=== PATIENT | female | born 1975 | race Caucasian/White ===

== ENCOUNTER 2019-07-09 08:08 | Emergency (ER) | payer OTHER ==
--- NOTE | 2019-07-09 08:28 | EDM.PDOC ---
ED HPI GENERAL MEDICAL PROBLEM - General Chief Complaint: Chest Pain Stated Complaint: CHEST PAIN Time Seen by Provider: 07/09/19 08:26 Source of Information: Reports: Patient History Limitations: Reports: No Limitations - History of Present Illness INITIAL COMMENTS - FREE TEXT/NARRATIVE: 44-year-old female presents to the ED for evaluation of central precordial left chest pain that awoke her from sleep at 0400 hrs. this morning. Angel sputum production. She denies very little problems with reflux esophagitis and particularly no worse as of recent bleed. Pain did not radiate through to her back. Appreciated is made of more short of breath. There is no pleuritic component to the pain. Was described as a dull ache pressure discomfort. She has a family history of coronary disease. She has problems currently with hypothyroidism and is currently on a mixture of thyroid replacement hormones primarily in the form of T3 supplementation. They're waiting to see if this will benefit her TSH versus adding free T4 as well. Sessile and positive iron binding capacity. Examination and vital signs are normal. No burping or belching to relieve the discomfort. In the present she states the pain is pretty well gone that she was expressing at 4:00 this morning. This suggests most likely GI source of chest pain. At present she does not need any active treatment. Onset: Today Onset Date: 07/09/19 Onset Time: 04:00 (From sleep with mild left precordial central chest pressure discomfort.) Duration: Improving ( Is now relieved itself.) Location: Reports: Chest (Left precordial mid chest). Denies: Radiates to (No radiation of the discomfort into her back neck or chest or left shoulder) Quality: Reports: Ache, Pressure Severity: Mild Improves with: Reports: Other Worsens with: Reports: None (Seem to improve over time.) Associated Symptoms: Reports: No Other Symptoms, Chest Pain, Headaches. Denies : Confusion, Cough, cough w sputum, Fever/Chills, Malaise, Rash, Seizure, Shortness of Breath, Syncope, Weakness Treatments SHOPPER: Reports: Other (see below) (None.) Chest Pain Score (Numeric/FACES): 5 - Related Data Allergies Allergy/AdvReac Type Severity Reaction Status Date / Time ciprofloxacin [From Cipro] Allergy Other Verified 07/09/19 08:25 Sulfa (Sulfonamide Allergy Other Verified 07/09/19 08:25 Antibiotics) Home Meds: Home Meds Naltrexone 3 mcg PO DAILY 07/09/19 [History] Progesterone, Micronized [Progesterone] 07/09/19 [History] T 3 32 mcg PO BID 07/09/19 [History] Past Medical History Cardiovascular History: Reports: Other (See Below) (Strong family history of coronary disease in her parents particularly.) Gastrointestinal History: Reports: GERD (Mild GERD.) Social & Family History - Tobacco Use Smoking Status *Q: Never Smoker ED ROS GENERAL - Review of Systems Review Of Systems: See Below Constitutional: Denies: No Symptoms, Fever, Chills, Malaise, Weakness, Fatigue, Diaphoresis, Decreased Appetite, Weight Loss HEENT: Denies: No Symptoms Respiratory: Reports: No Symptoms. Denies: Shortness of Breath, Wheezing, Pleuritic Chest Pain Cardiovascular: Reports: Chest Pain (Central precordial chest discomfort.), Palpitations (Aware of occasional palpitations.). Denies: No Symptoms, Blood Pressure Problem, Claudication, Dyspnea on Exertion, Edema, Lightheadedness, Orthopnea, PND, Syncope Endocrine: Reports: No Symptoms GI/Abdominal: Reports: Other (Some GERD. No relief with this chest discomfort with burping or belching.). Denies: Abdominal Pain, Anorexia, Bloody Stool, Diarrhea, Decreased Appetite, Difficulty Swallowing, Flatus, Hematemesis, Hematochezia : Reports: No Symptoms Musculoskeletal: Reports: Other (Generalized muscle skeletal pain syndrome labeled as fibromyalgia.) Skin: Reports: No Symptoms Neurological: Reports: No Symptoms. Denies: Seizure, Syncope, Tingling, Tremors , Difficulty Walking, Weakness Psychiatric: Reports: No Symptoms ED EXAM, GENERAL - Physical Exam Exam: See Below Exam Limited By: No Limitations General Appearance: Alert, WD/WN, No Apparent Distress, Other (Vital signs show temperature 37.0. Heart rate is 71 sinus respiratory is 18 with a pulse of 100% on room air. BP 08/31/80.) Eye Exam: Bilateral Eye: Normal Inspection, PERRL Ears: Normal TMs Neck: Normal Inspection, Non-Tender, Full Range of Motion. No: Carotid Bruit, Lymphadenopathy (L), Lymphadenopathy (R) Respiratory/Chest: No Respiratory Distress, Lungs Clear, Normal Breath Sounds, No Accessory Muscle Use, Chest Non-Tender, Other (Tenderness on palpation of the upper breasts she reports she has ) Cardiovascular: Normal Peripheral Pulses, Regular Rate, Rhythm, No Edema, No Gallop, No Murmur (diffuse fibrocystic disease and the upper breast.), No Rub Peripheral Pulses: 3+: Posterior Tibial (L), Posterior Tibial (R), Dorsalis Pedis (L), Dorsalis Pedis (R) GI/Abdominal: Normal Bowel Sounds, Soft, Non-Tender, No Organomegaly, No Distention, No Abnormal Bruit, No Mass, Pelvis Stable, Other (No previous abdominal surgeries.) Back Exam: Normal Inspection, Full Range of Motion. No: CVA Tenderness (L), CVA Tenderness (R) Extremities: Normal Inspection, Normal Range of Motion, Non-Tender, No Pedal Edema, Normal Capillary Refill Neurological: Alert, Oriented, CN II-XII Intact, Normal Cognition, Normal Gait Psychiatric: Normal Affect, Normal Mood Skin Exam: Warm, Intact, Normal Color, No Rash EKG INTERPRETATION EKG Date: 07/09/19 Time: 08:41 Rhythm: NSR Rate (Beats/Min): 70 Melcroft: Normal P-Wave: Present QRS: Other (Early R-wave transition V2 consider right ventricular hypertrophy pattern mildly decreased voltage in the precordial leads.) ST-T: Normal QT: Normal EKG Interpretation Comments: Essentially normal ECG Course - Vital Signs Last Recorded V/S: Last Vital Signs Temp 37.0 C 07/09/19 08:20 Pulse 71 07/09/19 08:20 Resp 18 07/09/19 08:20 BP 121/81 07/09/19 08:20 Pulse Ox 100 07/09/19 08:20 - Orders/Labs/Meds Orders: Active Orders 24 hr Category Date Time Status EKG Documentation Completion [RC] STAT Care 07/09/19 08:27 Active Peripheral IV Care [RC] . DIRECTED Care 07/09/19 08:42 Active FREE T3 [REF] Stat Lab 07/09/19 08:51 Received Sodium Chloride 0.9% [Saline Flush] Med 07/09/19 08:42 Active 10 ml FLUSH ASDIRECTED PRN Peripheral IV Insertion Adult [OM.PC] Stat Oth 07/09/19 08:42 Ordered Medication Orders Sodium Chloride (Saline Flush) 10 ml FLUSH ASDIRECTED PRN PRN Reason: Keep Vein Open Last Admin: 07/09/19 09:10 Dose: 10 ml Labs: Laboratory Tests 07/09/19 07/09/19 07/09/19 Range/Units 08:51 08:51 08:51 WBC 5.58 (3.98-10.04) K/mm3 RBC 4.55 (3.98-5.22) M/mm3 Hgb 13.2 (11.2-15.7) gm/dl Hct 38.3 (34.1-44.9) % MCV 84.2 (79.4-94.8) fl MCH 29.0 (25.6-32.2) pg MCHC 34.5 (32.2-35.5) g/dl RDW Std Deviation 39.5 (36.4-46.3) fL Plt Count 249 (182-369) K/mm3 MPV 10.4 (9.4-12.3) fl Neut % (Auto) 63.2 (34.0-71.1) % Lymph % (Auto) 28.7 (19.3-51.7) % [place]atte % (Auto) 7.2 (4.7-12.5) % Eos % (Auto) 0.7 (0.7-5.8) Baso % (Auto) 0.0 L (0.1-1.2) % Neut # (Auto) 3.53 (1.56-6.13) K/mm3 Lymph # (Auto) 1.60 (1.18-3.74) K/mm3 [place]atte # (Auto) 0.40 H (0.24-0.36) K/mm3 Eos # (Auto) 0.04 (0.04-0.36) K/mm3 Baso # (Auto) 0.00 L (0.01-0.08) K/mm3 PT 10.0 (9.7-12.0) SECONDS INR < 0.93 D-Dimer, Quantitative 0.44 (0.19-0.50) mg/L Sodium 140 (136-145) mEq/L Potassium 4.2 (3.5-5.1) mEq/L Chloride 105 (98-107) mEq/L Carbon Dioxide 28 (21-32) mEq/L Anion Gap 11.2 (5-15) BUN 14 (7-18) mg/dL Creatinine 0.6 (0.55-1.02) mg/dL Est Cr Clr Drug Dosing 130.74 mL/min Estimated GFR (MDRD) > 60 (>60) mL/min BUN/Creatinine Ratio 23.3 H (14-18) Glucose 103 (74-106) mg/dL Calcium 9.3 (8.5-10.1) mg/dL Magnesium 1.9 (1.8-2.4) mg/dl Iron (50-170) ug/dL TIBC (100-400) ug/dL % Saturation (20-55) % Transferrin (202-364) mg/dL Ferritin (8-252) ng/ml Total Bilirubin 0.4 (0.2-1.0) mg/dL AST 15 (15-37) U/L ALT 26 (14-59) U/L Alkaline Phosphatase 95 (46-116) U/L CK-MB (CK-2) 0.6 (0-3.6) ng/ml Troponin I < 0.017 (0.00-0.056) ng/mL C-Reactive Protein 0.6 (<1.0) mg/dL NT-Pro-B Natriuret Pep (0-125) pg/mL Total Protein 7.4 (6.4-8.2) g/dl Albumin 3.7 (3.4-5.0) g/dl Globulin 3.7 gm/dL Albumin/Globulin Ratio 1.0 (1-2) Free T4 0.38 L (0.76-1.46) ng/dL TSH 3rd Generation 0.655 (0.358-3.74) uIU/mL 07/09/19 07/09/19 Range/Units 08:51 08:51 WBC (3.98-10.04) K/mm3 RBC (3.98-5.22) M/mm3 Hgb (11.2-15.7) gm/dl Hct (34.1-44.9) % MCV (79.4-94.8) fl MCH (25.6-32.2) pg MCHC (32.2-35.5) g/dl RDW Std Deviation (36.4-46.3) fL Plt Count (182-369) K/mm3 MPV (9.4-12.3) fl Neut % (Auto) (34.0-71.1) % Lymph % (Auto) (19.3-51.7) % [place]atte % (Auto) (4.7-12.5) % Eos % (Auto) (0.7-5.8) Baso % (Auto) (0.1-1.2) % Neut # (Auto) (1.56-6.13) K/mm3 Lymph # (Auto) (1.18-3.74) K/mm3 Platte # (Auto) (0.24-0.36) K/mm3 Eos # (Auto) (0.04-0.36) K/mm3 Baso # (Auto) (0.01-0.08) K/mm3 PT (9.7-12.0) SECONDS INR D-Dimer, Quantitative (0.19-0.50) mg/L Sodium (136-145) mEq/L Potassium (3.5-5.1) mEq/L Chloride (98-107) mEq/L Carbon Dioxide (21-32) mEq/L Anion Gap (5-15) BUN (7-18) mg/dL Creatinine (0.55-1.02) mg/dL Est Cr Clr Drug Dosing mL/min Estimated GFR (MDRD) (>60) mL/min BUN/Creatinine Ratio (14-18) Glucose (74-106) mg/dL Calcium (8.5-10.1) mg/dL Magnesium (1.8-2.4) mg/dl Iron 80 (50-170) ug/dL TIBC 325 (100-400) ug/dL % Saturation 25 (20-55) % Transferrin 260 (202-364) mg/dL Ferritin 50 (8-252) ng/ml Total Bilirubin (0.2-1.0) mg/dL AST (15-37) U/L ALT (14-59) U/L Alkaline Phosphatase (46-116) U/L CK-MB (CK-2) (0-3.6) ng/ml Troponin I (0.00-0.056) ng/mL C-Reactive Protein (<1.0) mg/dL NT-Pro-B Natriuret Pep 47 (0-125) pg/mL Total Protein (6.4-8.2) g/dl Albumin (3.4-5.0) g/dl Globulin gm/dL Albumin/Globulin Ratio (1-2) Free T4 (0.76-1.46) ng/dL TSH 3rd Generation (0.358-3.74) uIU/mL Meds: Medications Generic Name Dose Route Start Last Admin Trade Name Cyn PRN Reason Stop Dose Admin Sodium Chloride 10 ml 07/09/19 08:42 07/09/19 09:10 Saline Flush FLUSH 10 ml ASDIRECTED PRN Administration Keep Vein Open Discontinued Medications Generic Name Dose Route Start Last Admin Trade Name Freq PRN Reason Stop Dose Admin Al Hydroxide/Mg Hydroxide 30 0 ml 07/09/19 10:34 07/09/19 11:01 ml/ Lidocaine HCl 15 ml PO 07/09/19 10:35 45 ml ONETIME ONE Administration Famotidine 20 mg 07/09/19 10:34 07/09/19 11:00 Pepcid PO 07/09/19 10:35 20 mg ONETIME ONE Administration - Radiology Interpretation Free Text/Narrative:: 44-year-old female presents to the ED with transient left precordial chest prep mid pressure discomfort that awoke from sleep at 0400 hrs. this morning. Not aware of any reflux symptoms at that time. No brash water reflux into her mouth or throat. Pressures have been on for good hour and a half and then slowly dissipated. Is a strong family history of coronary disease without any good reason. She denies cough sputum production fever chills. Denies any burping or belching to relieve the discomfort. At present time of exam the pain was well gone. ECG shows sinus rhythm with some early R-wave transition but no signs of any ischemic change. Benign abdominal exam. Note no pain on palpation of the anterior chest wall. Lungs are clear to stage percussion. Heart sounds normal. Plan 1 view chest x-ray. Routine labs including thyroid function and iron tissue level so she's been struggling with these levels some point length of time. There are likely unrelated. Feel her current chest pain was likely GI related. Cardiac markers will be ordered. - Re-Assessments/Exams Free Text/Narrative Re-Assessment/Exam: 07/09/19 10:14 White count is 5.58 with auto differential of 63% neutrophils. Hemoglobin 13.2 hematocrit of 38.3. MCV is 84.2. Platelet count is 249,000. PT is 10.0 with an INR 0.93. D-dimer is less than 0.44. Sodium 140 with potassium of 4.2. Chloride is 15 with a bicarbonate 28. Anion gap is 11.2. BUNs 14 with a creatinine of 0.6. Glucose is 103 with a calcium of 9.3. Magnesium normal at 1.9. Iron is 80 with a total iron binding capacity of 325% saturation is 25 transferrin is 260 ferritin is 50 total bilirubin is 0.4. Liver function otherwise normal. CK-MB fraction 0.6 with troponin I of less than 0.017. C- reactive protein is 0.6. BNP is 47 with a total protein is 7.4. Albumin fraction is 3.7. Free T4 is pending TSH is 0.655--in the normal range. 07/09/19 10:35 patient advised of the findings. No evidence of heart related illness d-dimer is negative. Chest x-ray normal. She now began to feel discomfort come back. It is my impression that her symptoms are likely GI related in regards to either reflux of gastric content or esophageal spasm versus hiatal hernia. Try GI cocktail and I will give her Pepcid 20 mg by mouth. 07/09/19 11:43 patient reports he did get some relief from the GI cocktail. I suspect she has suffered from alcohol to esophagitis from reflux disease. Is trying a course of Pepcid 20 mg every night at bedtime. Follow-up with personal care physician if not markedly improved in 3 weeks' time for upper GI series. Departure - Departure Time of Disposition: 11:07 Disposition: Home, Self-Care 01 Reason for Transfer *Q: Other Condition: Fair Clinical Impression: Non-cardiac chest pain, Diffuse esophageal spasm Gastroesophageal reflux disease Qualifiers: Esophagitis presence: with esophagitis Qualified Code(s): K21.0 - Gastro- esophageal reflux disease with esophagitis Instructions: Esophageal Spasm, Food Choices for Gastroesophageal Reflux Disease, Adult Referrals: PCP,None [Ordering Only Provider] - Forms: ED Department Discharge Additional Instructions: Evaluation the emergency room this morning in regards to presentation due to wakening from sleep at 0400 hrs. morning with left precordial chest pressure pain discomfort. No noted heartburn at that time. No problems swallowing since that time. Pain radiate up into the throat back or left shoulder. Strong family history of coronary disease. ECG workup was within normal limits showing no signs of heart related illness. Chest x-ray two-view was within normal limits. Lab work also proved negative cardiac markers and negative d-dimer rules out any blood clot in the lung. All of the other investigations were also within normal limits. Suspect that current chest pain syndrome was secondary to spasm of the esophagus or GI related illness possibly the small hiatal hernia slipping up into the came into the ED. Turn slightly at the time of examination. You are given a GI cocktail and Pepcid 20 mg by mouth. Which did seem to improve your symptoms mildly. I would suggest continue 20 mg of Pepcid every night at bedtime for the next 3-4 weeks and see if this doesn't improve the chest discomfort. This you should follow-up with your primary care physician and arrange for an upper GI endoscopy. - My Orders Last 24 Hours: My Active Orders 07/09/19 08:27 EKG Documentation Completion [RC] STAT 07/09/19 08:42 Peripheral IV Care [RC] . DIRECTED Sodium Chloride 0.9% [Saline Flush] 10 ml FLUSH ASDIRECTED PRN Peripheral IV Insertion Adult [OM.PC] Stat 07/09/19 08:51 FREE T3 [REF] Stat - Assessment/Plan Last 24 Hours: My Active Orders 07/09/19 08:27 EKG Documentation Completion [RC] STAT 07/09/19 08:42 Peripheral IV Care [RC] . DIRECTED Sodium Chloride 0.9% [Saline Flush] 10 ml FLUSH ASDIRECTED PRN Peripheral IV Insertion Adult [OM.PC] Stat 07/09/19 08:51 FREE T3 [REF] Stat
[2019-07-09] MEDS ORDERED: Sodium Chloride 0.9% 10 ML Syringe FLUSH PRN (08:42)
--- NOTE | 2019-07-09 09:09 | CR ---
Chest: Portable view of the chest was obtained. Comparison: No prior chest x-rays are available. Heart size and mediastinum are normal. Lungs are clear. Mild scoliosis is noted within the spine. Impression: 1. Scoliosis. Nothing acute is seen on portable chest x-ray. Diagnostic code #1 This report was dictated in [place] Standard Time
[2019-07-09] MEDS ORDERED: Alum Hydrox/Mag Hydrox/Simeth 30 ML, Lidocaine 2% 15 ML PO ONE ×2 (10:34)
[2019-07-09] MEDS ORDERED: Famotidine 20 MG Tab PO ONE (10:34)
== END 2019-07-09 11:55 | disposition home or self-care (01) ==
LOC: JD.ED 08:08
DX: K21.0 Gastro-esophageal reflux disease with esophagitis (principal); K22.4 Dyskinesia of esophagus; E03.9 Hypothyroidism, unspecified; Z79.890 Hormone replacement therapy; Z88.1 Allergy status to other antibiotic agents; Z88.2 Allergy status to sulfonamides
CPT/HCPCS: 36415; 71045; 80053; 82553; 82728; 83540; 83735; 83880; 84439; 84443; 84466; 84481; 84484; 85025; 85379; 85610; 86140; 93005; 99285; A9270; 93010; 99284